=== PATIENT | female | born 1955 | race Caucasian/White ===

== ENCOUNTER → 2020-07-26 | Outpatient (CLI) | payer OTHER ==
[~2020-07-26] MED LIST: LEVOTHYROXINE100 MCG PO; MULTI VITAMIN1 EACH PO; NORCO 10-325 T1 EACH PO
== END ==
LOC: LAB 09:18
PROVIDERS: ATTEND Surgery
DX: Z01.812 Encounter for preprocedural laboratory examination (principal); Z20.828 Contact with and (suspected) exposure to other viral communicable diseases

== ENCOUNTER 2020-07-30 06:36 | Day surgery (SDC) | payer OTHER ==
[~2020-07-30] VITALS: Ht 154.9 cm; Wt 63.5 kg
[~2020-07-30 06:36] MED LIST changes: -NORCO 10-325 T1 EACH PO
[2020-07-30 07:26] VITALS: BP 156/96
[2020-07-30] MEDS ORDERED: NORCO 10-325 T1 EACH PO (10:01)
[2020-07-30 10:26] VITALS: BP 156/96
--- NOTE | 2020-08-01 10:17 | O ---
[facility] [place] [address] OPERATIVE REPORT Name: GAIL MOTLEY Room #: DEP [facility].#: [id number] Admission: 07/30/20 Attend Phys: Bronson Garcia, Discharge: 07/30/20 Date of : 59 Report #: [id number] THIS REPORT FOR: cc: Sophie Booker,Sophie Olvera,Bronson Harrison MD ~ CC: Sophie Garcia DATE OF SERVICE: 07/30/2020 PREOPERATIVE DIAGNOSIS: Left inguinal hernia. POSTOPERATIVE DIAGNOSIS: Left inguinal hernia. OPERATION: Laparoscopic repair of left inguinal hernia with mesh. SURGEON: Bronson Garcia MD ANESTHESIA: General. ESTIMATED BLOOD LOSS: Minimal. SPECIMEN: None. DESCRIPTION OF PROCEDURE: After informed consent was obtained, the patient was brought to the operating room and placed supine. SCDs were placed and working, preoperative antibiotics were administered, general anesthesia was induced. The abdomen was prepped and draped in the usual sterile fashion. A 10 mm incision was made above the umbilicus. Fascia was incised and a trocar was placed. Pneumoperitoneum was established. Left and right lower quadrant 5 mm ports were placed. The patient was placed in the Trendelenburg position. The peritoneum at the left ASIS was scored. Peritoneum was incised medially. The peritoneum was then reflected inferiorly. This allowed visualization of the pubic bone. I made a pocket in the left lateral space. Epigastric vessels were identified and protected at all times. An indirect hernia sac was fully reduced. Hernia contents had preperitoneal fat. A medium Bard 3DMax light mesh was inserted. It was tacked to Honorio's ligament with 2 absorbable tacks. I then reapproximated the peritoneum with a running Stratafix suture. The area was then instilled with 20 mL of 0.5% Marcaine solution. The ports were then removed under direct vision. The fascia at the umbilicus was closed with a [id number] 0 Vicryl. Skin was closed with 4-0 Monocryl. Incisions were sealed with Dermabond. COMPLICATIONS: None. [facility] [address] [place] [address] OPERATIVE REPORT Name: GAIL MOTLEY Room #: DEP [facility]#: [id number] Admission: 07/30/20 Attend Phys: Bronson Garcia, Discharge: 07/30/20 Date of : 59 Report #: [id number] DISPOSITION: The patient was taken to recovery in satisfactory condition. <ELECTRONICALLY SIGNED> By: Bronson Garcia MD 08/01/20 [id number] Bronson Garcia MD /nt
== END 2020-07-30 11:03 | disposition home or self-care (01) ==
LOC: OR 06:36 → TBA 06:37 → OR 09:34
PROVIDERS: ATTEND Surgery
DX: K40.90 Unilateral inguinal hernia, without obstruction or gangrene, not specified as recurrent (principal); E03.9 Hypothyroidism, unspecified; Z98.890 Other specified postprocedural states; Z79.899 Other long term (current) drug therapy; Z90.710 Acquired absence of both cervix and uterus; Z98.51 Tubal ligation status; Z87.891 Personal history of nicotine dependence
CPT/HCPCS: 50010; 50101; 50411; 50507; 50555; 50848; 52265; 52266; 53307; 53314; 56462; 56525; 56526; 56531; 62110; 62900; 70005